=== PATIENT | female | born 1950 | race Caucasian/White ===

== ENCOUNTER → 2018-07-06 | Outpatient (CLI) | payer MEDICARE, OTHER ==
[~2018-07-06] MED LIST: ELMIRON; ESTR2 PO; FOLI1 PO; HYDACE5 PO; HYDSUL200 PO; LEVSOD75 PO; LOVA20 PO; METTREX2.5 PO; OLME20 PO; VENL75ER PO; WARF2 PO
== END | disposition home or self-care (01) ==
LOC: LAB 11:41 → LAB SHORT 11:41
DX: B35.6 Tinea cruris (principal)
CPT/HCPCS: 87070; 87205